=== PATIENT | female | born 1935 | race Asian ===

== ENCOUNTER 2017-07-04 09:31 | Emergency (ER) | payer OTHER, MEDICARE ==
[~2017-07-04] VITALS: Ht 152.4 cm; Wt 65.0 kg
[~2017-07-04 09:31] MED LIST: NAPROXEN375 M2 PO; TYLENOL WITH C1 EACH PO
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
[2017-07-04 10:32] LABS: ABSOLUTE BASOPHIL COUNT 0 /CUMM (0.0-0.2); ABSOLUTE EOSINOPHIL COUNT 0.2 /CUMM (0.0-0.7); ABSOLUTE GRANULOCYTE CT 5.5 /CUMM (1.4-6.5); ABSOLUTE LYMPH COUNT 3.1 /CUMM (1.2-3.4); ABSOLUTE MONOCYTE COUNT 0.6 /CUMM (0.10-0.60); BASOPHIL % 0.3 % (0.0-2.0); EOSINOPHIL % 1.8 % (0-5); GRANULOCYTE % 58.4 % (42.2-75.2); HEMATOCRIT 42.1 % (37-47); MEAN CORPUSCULAR HGB CONC 32.8 G/DL (33.0-37.0); MEAN CORPUSCULAR VOLUME 79.4 FL (81.0-99.0); MEAN PLATELET VOLUME 9.8 FL (7.4-10.4); PLATELET COUNT 245 /CUMM (130-400); RBC DISTRIBUTION WIDTH 14.4 % (11.5-14.5); WHITE BLOOD CELL COUNT 9.4 /CUMM (4.8-10.8)
[2017-07-04] MEDS ORDERED: LOSARTAN POTASS50 M1 PO (10:49)
[2017-07-04] MEDS ORDERED: SIMVASTATIN20 M2 PO (10:49)
--- NOTE | 2017-07-04 12:16 | RADIOLOGY REPORT ---
EXAMINATION: XR CHEST CLINICAL INFORMATION: Shortness of breath COMPARISON: 02/14/2017 TECHNIQUE: 2 views of the chest were obtained. FINDINGS: Lung volumes are symmetric. No dense consolidation is seen. There is suggestion of mild bibasilar atelectasis. No evidence of pneumothorax, pleural effusion, or overt pulmonary edema. Cardiac size appears at the upper limits of normal. No acute osseous findings are seen. IMPRESSION: Suggestion of mild bibasilar atelectasis, without additional dense consolidation.
[2017-07-04 12:49] VITALS: BP 141/67
[2017-07-04] MEDS ORDERED: FLONASE ALLERG9.9 ML NAS (13:29)
== END 2017-07-04 13:55 | disposition left against medical advice (07) ==
LOC: ERH 09:31
PROVIDERS: Physician Assistant
DX: J00 Acute nasopharyngitis [common cold] (principal); F41.9 Anxiety disorder, unspecified
CPT/HCPCS: 71046; 81003; 87804; 87804-59; 93005; 93010